=== PATIENT | male | born 1975 | race African-American/Black ===

== ENCOUNTER 2017-07-20 01:30 | Emergency (ER) | payer SELFPAY ==
[~2017-07-20] VITALS: Ht 195.6 cm; Wt 152.0 kg
[2017-07-20 02:11] VITALS: BP 150/99
== END 2017-07-20 08:09 | disposition left against medical advice (07) ==
LOC: ER 03:18
DX: Z04.1 Encounter for examination and observation following transport accident (principal); Z53.21 Procedure and treatment not carried out due to patient leaving prior to being seen by health care provider